=== PATIENT | female | born 1975 | race Caucasian/White ===

== ENCOUNTER 2020-04-01 19:35 | Emergency (ER) | payer OTHER ==
[~2020-04-01] VITALS: Ht 165.1 cm; Wt 98.0 kg
[2020-04-01] MEDS ORDERED: FENTANYL PF 100 MCG/2ML ONE ×2 (20:09→20:45)
[2020-04-01] MEDS ORDERED: LORazepam 2 MG/ML, 1ML ONE (20:09)
[2020-04-01] MEDS: FENTANYL PF 100 MCG/2ML IVPush PRN ×2 (20:11→20:46)
[2020-04-01] MEDS ORDERED: LORazepam 2 MG/ML, 1ML IVPush ONE (20:30)
[2020-04-01] MEDS ORDERED: SODIUM CHLORIDE FLUSH 10ML SYR IVF ONE (20:30)
[2020-04-01] MEDS ORDERED: PLEASE ENTER ALLERGIES MC SCH (20:30)
[2020-04-01] MEDS ORDERED: PROPOFOL 10 MG/ML, 20ML ONE (21:25)
[2020-04-01] MEDS: PROPOFOL 10 MG/ML, 20ML IV ONE ×2 (21:53→21:56)
--- NOTE | 2020-04-01 21:56 | NUR ---
MEDICATION DOSAGE RESCANNED DUE TO INCORRECT SCANNING ON INCORRECT AREA. PATIENT RECIEVED A TOTAL OF 150MG OF PROPOFOL ADMINISTERED BY .
[2020-04-01] MEDS ORDERED: PROPOFOL 10 MG/ML, 20ML IVPush ONE (22:00)
[2020-04-01 23:00] VITALS: BP 119/83
--- NOTE | 2020-04-01 23:12 | NUR ---
PATIENT HAS BEEN CLEARED FOR DISCHARGE. VITAL SIGNS STABLE, NO NOTED ACUTE DISTRESS. PATIENT IS 15 ON DISCHARGE RECOVERY SCORE. SEE DISCHARGE SHEET OF CONSCIOUS SEDATION PACKET FOR VITAL SIGNS. PATIENT TAKEN TO DISCHARGE DESK VIA WHEELCHAIR, ABLE TO AMBULATE WITHOUT COMPLICATIONS WITH CRUTCHES. PATIENT WAS ABLE TO VERBALLY TEACH BACK CRUTCH INFORMATION. PATIENT AND FRIEND VERBALLY CONFIRMED DISCHARGE SELF CARE AND FOLLOW UP INSTRUCTIONS WITH ORTHOPEDICS.
[2020-04-07] MEDS ORDERED: ESCI10TA PO (13:02)
[2020-04-07] MEDS ORDERED: OXYC-302 PO (13:02)
== END 2020-04-01 23:18 | disposition home or self-care (01) ==
LOC: ED 20:02
DX: S93.05XA Dislocation of left ankle joint, initial encounter (principal); W19.XXXA Unspecified fall, initial encounter; Y93.89 Activity, other specified; Y92.098 Other place in other non-institutional residence as the place of occurrence of the external cause; Y99.8 Other external cause status
CPT/HCPCS: 27840; 73590; 73610; 96374; 96375; 96376; 99285; J2060; J2704; J3010

== ENCOUNTER 2020-04-11 10:17 | Day surgery (SDC) | payer OTHER ==
[~2020-04-11] VITALS: Ht 165.1 cm; Wt 106.0 kg
[~2020-04-11 10:17] MED LIST: ESCI10TA PO; OXYC-302 PO
[2020-04-11 10:44] VITALS: BP 136/93
[2020-04-11] MEDS ORDERED: CHLORHEXIDINE 15 ML UDC MM STA (10:46)
[2020-04-11] MEDS ORDERED: LIDOCAINE-MPF 1%, 2ML INFIL STA (10:46)
[2020-04-11] MEDS ORDERED: LIDOCAINE-MPF 1%, 2ML ONE (10:49)
[2020-04-11] MEDS ORDERED: CHLORHEXIDINE 15 ML UDC ONE (10:49)
[2020-04-11] MEDS ORDERED: LACTATED RINGERS 1,000 ML IV SCH (10:54)
[2020-04-11] MEDS ORDERED: MIDAZOLAM 1 MG/ML, 2ML ONE (10:56)
[2020-04-11] MEDS ORDERED: FENTANYL PF 100 MCG/2ML ONE ×2 (10:56→12:56)
[2020-04-11] MEDS ORDERED: BACITRACIN OINT 500U/GM, 15 GM ONE (11:39)
[2020-04-11] MEDS ORDERED: BUPIVACAINE/PF-EPI 0.5% 1:200K ONE (11:39)
[2020-04-11] MEDS ORDERED: MEPERIDINE/PF 25MG/0.5ML IVPush PRN (13:00)
[2020-04-11] MEDS ORDERED: OXYcodone 5 MG/5 ML ORAL.SOL UDC PO PRN (13:00)
[2020-04-11] MEDS ORDERED: PROMETHAZINE 25 MG/ML, 1ML IV PRN (13:00)
[2020-04-11] MEDS ORDERED: hydrALAzine 20 MG/ML, 1ML IV PRN (13:00)
[2020-04-11] MEDS ORDERED: FENTANYL PF 100 MCG/2ML IV PRN (13:00)
[2020-04-11] MEDS ORDERED: ALBUTEROL SULFATE 2.5 MG/3 ML NPPB PRN (13:00)
[2020-04-11] MEDS ORDERED: KETOROLAC 30 MG/1 ML IV PRN (13:00)
[2020-04-11] MEDS ORDERED: HYDROmorphone 2 MG/ML, 1ML IVPush PRN (13:00)
[2020-04-11] MEDS ORDERED: ACETAMINOPHEN 325 MG TABLET PO PRN (13:00)
[2020-04-11] MEDS ORDERED: DIAZEPAM 5 MG/ML, 2ML IVPush PRN (13:00)
[2020-04-11] MEDS ORDERED: LABETALOL 5MG/ML, 20ML ONE (13:33)
[2020-04-11] MEDS: LABETALOL 5MG/ML, 20ML IV PRN ×3 (13:35→14:12)
[2020-04-11] MEDS ORDERED: MEPERIDINE/PF 25MG/ML,1ML ONE (13:37)
[2020-04-11] MEDS ORDERED: DIAZEPAM 5 MG/ML, 2ML ONE (14:15)
[2020-04-11] MEDS ORDERED: CEFAZOLIN 1,000 MG ONE (14:36)
[2020-04-11] MEDS ORDERED: PROPOFOL 10 MG/ML, 20ML ONE (14:36)
[2020-04-11] MEDS ORDERED: ROCURONIUM 10MG/ML,5ML ONE (14:36)
[2020-04-11] MEDS ORDERED: DEXAMETHASONE 4 MG/ML, 1ML ONE (14:36)
[2020-04-11] MEDS ORDERED: SUCCINYLCHOLINE 20 MG/ML, 10ML ONE (14:36)
[2020-04-11] MEDS ORDERED: GLYCOPYRROLATE 0.2MG/1ML, 5ML ONE (14:36)
[2020-04-11] MEDS ORDERED: ONDANSETRON 2MG/ML, 2ML ONE (14:36)
[2020-04-11] MEDS ORDERED: NEOSTIGMINE 1 MG/ML, 10ML ONE (14:36)
== END 2020-04-11 16:15 | disposition home or self-care (01) ==
LOC: OR 10:17
PROVIDERS: ATTEND Orthopaedic Surgery
DX: S82.832A Other fracture of upper and lower end of left fibula, initial encounter for closed fracture (principal); S93.422A Sprain of deltoid ligament of left ankle, initial encounter; S93.432A Sprain of tibiofibular ligament of left ankle, initial encounter; E66.9 Obesity, unspecified; Z79.891 Long term (current) use of opiate analgesic; Z79.899 Other long term (current) drug therapy; Z88.2 Allergy status to sulfonamides; Z82.61 Family history of arthritis; Z82.49 Family history of ischemic heart disease and other diseases of the circulatory system; X50.1XXA Overexertion from prolonged static or awkward postures, initial encounter; W10.8XXA Fall (on) (from) other stairs and steps, initial encounter; Y93.89 Activity, other specified; Y92.89 Other specified places as the place of occurrence of the external cause; Y99.8 Other external cause status
CPT/HCPCS: 27695; 27829; 64445; 64447; 73600; C1713; J0690; J1100; J2175; J2250; J2405; J2704; J3010; J3360; J7120; 76000; J2710; J0330; U0001-CS